=== PATIENT | female | born 1980 | race Hispanic/Latino ===

== ENCOUNTER 2020-03-26 00:19 | Emergency (ER) | payer SELFPAY ==
[2020-03-26] MEDS ORDERED: Ibuprofen 800 MG TAB ONE (00:37)
[2020-03-26] MEDS ORDERED: HYDROcodone/Acetaminophen 5/325 mg Tablet ONE (00:37)
[2020-03-26] MEDS ORDERED: Bupivacaine 0.5% 10 ML VIAL ONE (00:51)
--- NOTE | 2020-03-26 10:36 | RAD ---
RIGHT WRIST 3 VIEWS: Date: 03/26/2020 Post reduction views in splint show improved alignment of the distal radial fracture. There is probab ly a fracture through the tip of the ulnar styloid as well. The carpal relationships seem normal. IMPRESSION: Successful reduction of distal radial fracture. POS: HOME
--- NOTE | 2020-03-26 10:38 | RAD ---
RIGHT FOREARM 2 VIEWS: Date: 03/26/2020 There is an impacted fracture of the distal radius with dorsal angulation of the distal fragment. It is difficult to assess the ulnar styloid, but there may be a small chip here. The distal ulna curves radially and posteriorly, but smoothly so. I would not be surprised if there was an old fracture here in the distant past. The proximal forearm appeared intact. IMPRESSION: Impacted, angulated fracture of the distal radius. POS: HOME
== END 2020-03-26 01:32 | disposition home or self-care (01) ==
LOC: BURERS 00:19
DX: S52.501A Unspecified fracture of the lower end of right radius, initial encounter for closed fracture (principal); W19.XXXA Unspecified fall, initial encounter
CPT/HCPCS: 25605; J3490